=== PATIENT | female | born 1965 | race Caucasian/White ===

== ENCOUNTER → 2019-05-07 10:11 | Outpatient (BNVA) | payer OTHER, SELFPAY | PROVIDERS: Visit Provider Anesthesiology Pain Medicine | DX: M79.18 Myalgia, other site (principal); M54.9 Dorsalgia, unspecified | CPT/HCPCS: 20553; 99999; J1030; J3490 ==

== ENCOUNTER → 2019-06-17 10:38 | Outpatient (BNVA) | payer OTHER, SELFPAY | PROVIDERS: Visit Provider Anesthesiology Pain Medicine | DX: M25.559 Pain in unspecified hip (principal); M79.18 Myalgia, other site; M54.9 Dorsalgia, unspecified | CPT/HCPCS: 20550; 20553; J1030; J3490 ==

== ENCOUNTER → 2019-08-02 14:42 | Outpatient (BNVA) | payer OTHER, SELFPAY | PROVIDERS: Visit Provider Anesthesiology Pain Medicine | DX: M25.552 Pain in left hip (principal); M79.18 Myalgia, other site; M54.41 Lumbago with sciatica, right side; M54.42 Lumbago with sciatica, left side; M54.9 Dorsalgia, unspecified | CPT/HCPCS: 20610; 77003; 99213; 99214; J1030; J2001; J3490 ==

== ENCOUNTER → 2019-08-19 13:55 | Outpatient (BNVA) | payer OTHER, SELFPAY | PROVIDERS: Visit Provider Anesthesiology Pain Medicine | DX: M79.18 Myalgia, other site (principal); M54.9 Dorsalgia, unspecified; M25.559 Pain in unspecified hip | CPT/HCPCS: 20553; 99213; J1030; J3490 ==